=== PATIENT | female | born 1985 | race Hispanic/Latino ===

== ENCOUNTER 2017-12-02 12:25 | Emergency (ER) | payer SELFPAY ==
[2017-12-02] MEDS ORDERED: Ondansetron HCl/PF 4 MG/2 ML Vial ONE ×2 (12:57→16:10)
--- NOTE | 2017-12-02 14:52 | RAD ---
RIGHT WRIST 3 VIEWS: Date: 12/02/17 INDICATION: Fall with injury, pain. FINDINGS: There is a comminuted distal right radial fracture which does involve the articular surface. Ulnar st yloid avulsion injury is present. IMPRESSION: 1. Comminuted intrarticular distal radial fracture. 2. Ulnar styloid avulsion injury. POS: [facility]
--- NOTE | 2017-12-02 16:47 | RAD ---
RIGHT WRIST POST REDUCTION 2 VIEWS: Date: 12/02/17 HISTORY: Follow-up wrist fracture post reduction. FINDINGS/IMPRESSION: The comminuted fracture of the distal radius has been reduced. There continues to be dorsal angulatio n of the major distal fragment and there is associated fracture of the ulnar styloid. POS: [facility]
[2017-12-02] MEDS ORDERED: Metoclopramide HCl 10 MG/2 ML VIAL ONE (17:25)
== END 2017-12-02 22:23 | disposition home or self-care (01) ==
LOC: ERS 12:25
DX: S52.571A Other intraarticular fracture of lower end of right radius, initial encounter for closed fracture (principal); E78.5 Hyperlipidemia, unspecified; Z79.899 Other long term (current) drug therapy; W11.XXXA Fall on and from ladder, initial encounter
CPT/HCPCS: 25505; 96374; 96375; 96376; 99152; 99153; J2270; J2405; J2765